=== PATIENT | male | born 1995 | race Caucasian/White ===

== ENCOUNTER 2019-11-05 07:13 | Emergency (ER) | payer SELFPAY ==
[2019-11-05] MEDS ORDERED: IBUPROFEN 600 MG TABLET PO ONE (07:40)
--- NOTE | 2019-11-05 07:44 | ER Document Report ---
ED Neck/Back Problem - General Chief Complaint: Buttock Injury Stated Complaint: BUTTOCK PAIN Time Seen by Provider: 11/05/19 07:40 Mode of Arrival: Ambulatory Information source: Patient Notes: 24-year-old male presented to ED for complaint of low back and buttock pain. He states that he has been doing a lot of lifting and pulling and he thinks he has injured his buttocks and his low back. He is alert oriented respirations regular nonlabored speaking in full sentences. He states he thinks is swollen. There is no obvious swelling to the area. There is no bruising. He states he has not fallen. He is able to walk with a even steady gait. Physical Exam - Vital signs Vitals: Temp Pulse Resp BP Pulse Ox 98.9 F 81 15 117/58 L 97 11/05/19 07:17 11/05/19 07:17 11/05/19 07:17 11/05/19 07:17 11/05/19 07:17 Course - Vital Signs Vital signs: Temp Pulse Resp BP Pulse Ox 98.9 F 81 15 117/58 L 97 11/05/19 07:17 11/05/19 07:17 11/05/19 07:17 11/05/19 07:17 11/05/19 07:17
--- NOTE | 2019-11-05 07:51 | ER Document Report ---
ED Medical Screen (RME) - General Chief Complaint: Back Pain Stated Complaint: BUTTOCK PAIN Time Seen by Provider: 11/05/19 07:40 Mode of Arrival: Ambulatory Information source: Patient Notes: 24-year-old male presented to ED for complaint of low back and buttock pain. He states that he has been doing a lot of lifting and pulling and he thinks he has injured his buttocks and his low back. He is alert oriented respirations regular nonlabored speaking in full sentences. He states he thinks is swollen. There is no obvious swelling to the area. There is no bruising. He states he has not fallen. He is able to walk with a even steady gait. Patient has been treated with ibuprofen while waiting for his x-rays. I have greeted and performed a rapid initial assessment of this patient. A comprehensive ED assessment and evaluation of the patient, analysis of test results and completion of medical decision making process will be conducted by an additional ED providers. Physical Exam - Vital signs Vitals: Temp Pulse Resp BP Pulse Ox 98.9 F 81 15 117/58 L 97 11/05/19 07:17 11/05/19 07:17 11/05/19 07:17 11/05/19 07:17 11/05/19 07:17 Course - Vital Signs Vital signs: Temp Pulse Resp BP Pulse Ox 98.9 F 81 15 117/58 L 97 11/05/19 07:17 11/05/19 07:17 11/05/19 07:17 11/05/19 07:17 11/05/19 07:17
--- NOTE | 2019-11-05 08:30 | RADIOLOGY REPORT (SQ) ---
EXAM DESCRIPTION: L SPINE WHOLE IMAGES COMPLETED DATE/TIME: 11/05/2019 8:15 am REASON FOR STUDY: pain possible injury COMPARISON: None. NUMBER OF VIEWS: Five views including obliques. TECHNIQUE: AP, lateral, oblique, and sacral radiographic images acquired of the lumbar spine. LIMITATIONS: None. FINDINGS: MINERALIZATION: Normal. SEGMENTATION: Normal. No transitional anatomy. ALIGNMENT: Normal. VERTEBRAE: Maintained height. No fracture or worrisome bone lesion. DISCS: Preserved height. No significant osteophytes or end plate irregularity. POSTERIOR ELEMENTS: Pedicles and facets are intact. No pars defect or posterior arch defects. HARDWARE: None in the spine. PARASPINAL SOFT TISSUES: Normal. PELVIS: Intact as visualized. No fractures or worrisome bone lesions. SI joints intact. OTHER: No other significant finding. IMPRESSION: NORMAL 5 VIEW LUMBAR SPINE. TECHNICAL DOCUMENTATION: JOB ID: [id number] 2010 [email or web address]- All Rights Reserved Reading location - IP/workstation name: [email or web address]
[2019-11-05 08:48] LABS: ABSOLUTE EOSINOPHILS # (AUTO) 0.1 10^3/uL (0.0-0.6); ABSOLUTE LYMPHOCYTES (AUTO) 1.8 10^3/uL (0.5-4.7); ABSOLUTE MONOCYTES (AUTO) 0.7 10^3/uL (0.1-1.4); ABSOLUTE NEUT (AUTO) 5.2 10^3/uL (1.7-8.2); BASOPHILS % (AUTO) 0.1 % (0-2); EOSINOPHILS % (AUTO) 1.2 % (0-6); HEMATOCRIT 35.6 % (37.9-51.0); HEMOGLOBIN 12.4 g/dL (13.5-17.0); LYMPHOCYTES % (AUTO) 22.9 % (13-45); MEAN CORPUSCULAR HEMOGLOBIN 30.6 pg (27.0-33.4); MEAN CORPUSCULAR HGB CONC 34.8 g/dL (32.0-36.0); MEAN CORPUSCULAR VOLUME 88 fl (80-97); MONOCYTES % (AUTO) 9.1 % (3-13); PLATELET COUNT 212 10^3/uL (150-450); RED BLOOD COUNT 4.05 10^6/uL (4.35-5.55); RED CELL DISTRIBUTION WIDTH 12.6 % (11.5-14.0); SEGMENTED NEUTROPHILS % (AUTO) 66.7 % (42-78); TOTAL CELLS COUNTED % (AUTO) 100 %; WHITE BLOOD COUNT 7.8 10^3/uL (4.0-10.5)
--- NOTE | 2019-11-05 08:58 | ER Document Report ---
Entered by GARRETT CAMPBELL SCRIBE 11/05/19 0842 Acting as scribe for:QUE RUIZ MD ED Neck/Back Problem - General Chief Complaint: Back Pain Stated Complaint: BUTTOCK PAIN Time Seen by Provider: 11/05/19 07:40 Mode of Arrival: Ambulatory Information source: Patient Notes: This 24 year old male patient presents to the emergency department today with complaints of tailbone pain. Patient states he thinks he either "broke it, sprained it, or dislocated his tailbone or something coming from his hip". Patient states he has had pain for >3 weeks but he has been "trying to put it off until his child is born so that he has insurance". 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 Patient also mentions dental pain, stating that he has an appointment tomorrow to have teeth extracted and cavities filled. Past Medical History - General Information source: Patient - Social History Smoking Status: Former Smoker Cigarette use (# per day): No - smoked for one year at age 17 Frequency of alcohol use: None Drug Abuse: None Occupation: [employer] Family History: Reviewed & Not Pertinent Patient has homicidal ideation: No - Medical History Medical History: Negative Surgical Hx: Negative Review of Systems - Review of Systems Constitutional: No symptoms reported EENT: See HPI, Mouth pain, Mouth swelling, Dental problem Cardiovascular: No symptoms reported Respiratory: No symptoms reported Gastrointestinal: No symptoms reported Genitourinary: Frequency - states he has had urinary frequency for 9 months, but mentions he has been seen and worked up by urology years ago for this and he was started on abx, states it made it better for a short period of time. also mentions he was told by urology that he needs to train his bladder Male Genitourinary: No symptoms reported Musculoskeletal: See HPI, Back pain Skin: No symptoms reported Hematologic/Lymphatic: No symptoms reported Neurological/Psychological: No symptoms reported -: Yes All other systems reviewed and negative Physical Exam - Vital signs Vitals: Temp Pulse Resp BP Pulse Ox 98.9 F 81 15 117/58 L 97 11/05/19 07:17 11/05/19 07:17 11/05/19 07:17 11/05/19 07:17 11/05/19 07:17 - Notes Notes: Physical Exam: General: Alert, appears well. HEENT: Normocephalic. Atraumatic. PERRL. Extraocular movements intact. Oropharynx clear. Lower first molar on the left medial wall is fractured and absent leaving a deep cavity. Neck: Supple. Non-tender. Respiratory: No respiratory distress. Clear and equal breath sounds bilaterally. Cardiovascular: Regular rate and rhythm. Abdominal: Normal Inspection. Non-tender. No distension. Normal Bowel Sounds. Back: There is tenderness to palpation over the spinous processes of the lower sacrum, no coccyx tenderness to palpation. There is no tenderness palpation of the paravertebral lumbar and sacral muscles. Extremities: Moves all four extremities. Upper extremities: Normal inspection. Normal ROM. Lower extremities: Normal inspection. No edema. Normal ROM. Neurological: Normal cognition. AAOx4. Normal speech. Psychological: Normal affect. Normal Mood. Skin: Warm. Dry. Normal color. Course - Re-evaluation Re-evalutation: 11/05/19 10:25 Lumbar spine x-rays were normal. CBC does not suggest an infectious process. Erythrocyte sedimentation rate is normal at 10. CRP is slightly elevated at 19.5. Physical exam is most consistent with muscular lumbar sacral back pain. - Vital Signs Vital signs: Temp Pulse Resp BP Pulse Ox 98.9 F 81 15 117/58 L 97 11/05/19 07:17 11/05/19 07:17 11/05/19 07:17 11/05/19 07:17 11/05/19 07:17 - Laboratory Result Diagrams: 11/05/19 08:30 11/05/19 08:30 Laboratory results interpreted by me: 11/05/19 11/05/19 08:30 08:30 RBC 4.05 L Hgb 12.4 L Hct 35.6 L C-Reactive Protein 19.3 H - Diagnostic Test Radiology reviewed: Image reviewed, Reports reviewed - Lumbar sacral spine x- rays unremarkable. Discharge - Discharge Clinical Impression: Low back pain Qualifiers: Chronicity: acute Back pain laterality: midline Sciatica presence: without sciatica Qualified Code(s): M54.5 - Low back pain Condition: Stable Disposition: HOME, SELF-CARE Additional Instructions: Low Back Pain Three out of every four people will have an episode of disabling back pain during their lifetime. Most commonly the pain is due to straining of the muscles and ligaments in the low back. Usual treatment includes: (1) Rest on a firm surface. Avoid lying on your stomach. (2) Ice pack the painful area. After a few days, gentle heat may be used intermittently to relax the area, or ice packs can be continued. (3) Medication may be needed -- muscle relaxers and antiinflammatory medicines are commonly used. (4) As the back improves, exercises are prescribed to strengthen the back and abdominal muscles. Your doctor will advise you on the proper care for your back at each stage in your recovery. You may be better in a few days -- or healing may take several weeks. If new symptoms of a "herniated disc" (radiation of pain, numbness, or tingling down the back of the leg or weakness in the leg) occur, you should be re-examined. Further testing may be necessary. Take the medications as prescribed. Rest. Consider seeing a chiropractor if you do not notice relief. Follow-up with a local primary care provider if not improving. RETURN TO THE EMERGENCY ROOM IF ANY NEW OR WORSENING SYMPTOMS. Prescriptions: Cyclobenzaprine HCl 5 mg PO Q8 PRN #15 tablet PRN Reason: Naproxen [Naprosyn] 500 mg PO BID #20 tablet Forms: Return to Work I personally performed the services described in the documentation, reviewed and edited the documentation which was dictated to the scribe in my presence, and it accurately records my words and actions.
[2019-11-05 09:10] LABS: ALBUMIN 4.1 g/dL (3.5-5.0); ALKALINE PHOSPHATASE 61 U/L (38-126); ANION GAP 6 (5-19); ASPARTATE AMINO TRANSFERASE 17 U/L (17-59); BILIRUBIN,TOTAL 0.2 mg/dL (0.2-1.3); BLOOD UREA NITROGEN 12 mg/dL (7-20); C-REACTIVE PROTEIN 19.3 mg/L (<10.0); CALCIUM 9.4 mg/dL (8.4-10.2); CARBON DIOXIDE 30 mmol/L (22-30); CHLORIDE 102 mmol/L (98-107); GLUCOSE 91 mg/dL (75-110); POTASSIUM 4.2 mmol/L (3.6-5.0); TOTAL PROTEIN 6.6 g/dL (6.3-8.2)
[2019-11-05 09:44] LABS: ERYTHROCYTE SEDIMENTATION RATE 10 mm/hr (0-15)
[2019-11-05 10:52] VITALS: BP 104/84
== END 2019-11-05 10:52 | disposition home or self-care (01) ==
LOC: ER 07:13
DX: M54.5 Low back pain (principal); M54.9 Dorsalgia, unspecified; K08.89 Other specified disorders of teeth and supporting structures; R35.0 Frequency of micturition; X50.0XXA Overexertion from strenuous movement or load, initial encounter; Z87.891 Personal history of nicotine dependence
CPT/HCPCS: 36415; 72110; 80053; 85025; 85652; 86140; 99283